=== PATIENT | female | born 1995 | race Caucasian/White ===

== ENCOUNTER 2016-07-17 23:34 | Emergency (ER) | payer BC ==
[~2016-07-17] VITALS: Ht 167.6 cm; Wt 67.8 kg
[2016-07-18] MEDS ORDERED: MOXEZA3 ML BOTH EYES (01:03)
[2016-07-18 01:30] VITALS: BP 136/70
== END 2016-07-18 01:30 | disposition home or self-care (01) ==
LOC: EME 23:34
DX: H10.33 Unspecified acute conjunctivitis, bilateral (principal); Z88.6 Allergy status to analgesic agent
CPT/HCPCS: 99281; 99284